=== PATIENT | female | born 1960 | race Caucasian/White ===

== ENCOUNTER 2018-04-13 09:42 | Emergency (ER) | payer BC ==
[2018-04-13] MEDS ORDERED: DEXAMETHASONE SOD PHOSPHATE 10MG/ML 1ML VIAL ONE (09:53)
[2018-04-13] MEDS ORDERED: DiphenhydrAMINE HCL 50 MG/ML VIAL ONE (09:53)
[2018-04-13] MEDS ORDERED: LORAZEPAM 2 MG/ML 1 ML VIAL ONE (09:54)
== END 2018-04-13 11:20 | disposition home or self-care (01) ==
LOC: EDBD 09:42 → EDH 09:42
DX: T78.49XA Other allergy, initial encounter (principal); E78.5 Hyperlipidemia, unspecified; X58.XXXA Exposure to other specified factors, initial encounter
CPT/HCPCS: 96372 ×3; 99284; J1100; J1200; J2060

== ENCOUNTER → 2018-07-02 | Outpatient (CLI) | payer BC ==
[~2018-07-02] MED LIST: GADODIAMIDE 10 MMOL/20 ML ML IV ONE
== END | disposition home or self-care (01) ==
LOC: CANPRECLI → RAH 14:04
PROVIDERS: ATTEND Neurological Surgery
DX: M50.323 Other cervical disc degeneration at C6-C7 level (principal)
CPT/HCPCS: 72156; A9579